=== PATIENT | female | born 1990 | race Caucasian/White ===

== ENCOUNTER 2016-09-18 20:41 | Emergency (ER) | payer BC ==
[~2016-09-18 20:41] MED LIST: AUGM875T PO; SPRI28TA PO
[2016-09-18 20:52] VITALS: BP 135/78; PULSE 77; RESP 20; TEMP 98.3; O2SAT 97
[2016-09-18] MEDS ORDERED: SPRI28TA PO (21:13)
[2016-09-18] MEDS ORDERED: PHEN95TA13 PO (21:13)
--- NOTE | 2016-09-18 21:17 | PD ---
HPI Chief Complaint: Complaint Time Seen by Provider: 21:04 Travel History International Travel<30 days: No Contact w/Intl Traveler<30days: No Traveled to known affect area: No History of Present Illness HPI This 25-year-old female presents with complaint of possible UTI. She says she is having frequency and lower abdominal pain. She gets frequent UTIs. She has not had fever or vomiting. She is not having flank pain. She didn't think she is but she is not sure. She is on control pills PFSH Past Medical History Hx Anticoagulant Therapy: No Cardiovascular Problems: No Chemotherapy: No Cerebrovascular Accident: No Diabetes: No Diminished Hearing: No Genitourinary: Yes (RECURRENT UTI) Musculoskeletal: Yes (RIGHT ANKLE FRACTURE) Reproductive: Yes (OVARIAN CYSTS; STARTED ON CONTROL PILLS FOR SAME ) Respiratory: No Immunizations Current: Yes Shingles: Yes Tetanus Vaccination: > 5 Years Influenza Vaccination: No ?: Not LMP: 2 YEARS , CONTROLL , : 0 Para: 0 Miscarriage: 0 : 0 Ovarian Cysts: Yes Past Surgical History Hysterectomy: No Oral Surgery: Yes (WISDOM TEETH REMOVED) Social History Alcohol Use: Yes (OCC) Tobacco Use: No Substance Use: No Allergies-Medications (Allergen,Severity, Reaction): Coded Allergies: Erythromycin (Verified Allergy, Mild, RASH, 09/18/16) Bactrim (Verified Allergy, Unknown, RASH, 09/18/16) Reported Meds & Prescriptions Reported Meds & Active Scripts Active Reported Uristat (Phenazopyridine HCl) 95 Mg Tablet 1 Tab PO TID Sprintec 28 (Norgestimate-Ethinyl Estradiol) 0.25-35 mg-Mcg Tab 1 Tab PO DAILY Review of Systems General / Constitutional: No: Fever, Chills Eyes: No: Diploplia, Blurred Vision HENT: No: Headaches, Vertigo Cardiovascular: No: Chest Pain or Discomfort, Palpitations Respiratory: No: Cough, Shortness of Breath Gastrointestinal: No: Nausea, Vomiting Genitourinary: Positive: Urgency, Frequency, Dysuria Musculoskeletal: No: Myalgias Skin: No Rash Physical Exam Narrative GENERAL: Well-developed female SKIN: Focused skin assessment warm/dry. HEAD: Atraumatic. Normocephalic. EYES: Pupils equal and round. No scleral icterus. No injection or drainage. ENT: No nasal bleeding or discharge. Mucous membranes pink and moist. NECK: Trachea midline. No JVD. CARDIOVASCULAR: Regular rate and rhythm. No murmur appreciated. RESPIRATORY: No accessory muscle use. Clear to auscultation. Breath sounds equal bilaterally. GASTROINTESTINAL: Abdomen soft, non-tender, nondistended. Hepatic and splenic margins not palpable. MUSCULOSKELETAL: No obvious deformities. No clubbing. No cyanosis. No edema. NEUROLOGICAL: Awake and alert. No obvious cranial nerve deficits. Motor grossly within normal limits. Normal speech. PSYCHIATRIC: Appropriate mood and affect; insight and judgment normal. Data Data Last Documented VS Vital Signs Date Time Temp Pulse Resp B/P Pulse Ox O2 Delivery O2 Flow Rate FiO2 09/18/16 20:52 98.3 77 20 135/78 97 Orders Urinalysis - C+S If Indicated (09/18/16 21:15) Ed Urine Pregnancytest Poc (09/18/16 21:15) Labs Laboratory Tests Test 09/18/16 21:15 Urine Color RED Urine Turbidity CLOUDY Urine pH 5.0 Urine Specific [place] 1.035 Urine Protein 100 mg/dL Urine Glucose (UA) 100 mg/dL Urine Ketones TRACE mg/dL Urine Occult Blood NEG Urine Nitrite POS Urine Bilirubin NEG Urine Leukocyte Esterase SMALL Urine RBC 4-9 /hpf Urine WBC 6-8 /hpf Urine Squamous Epithelial 0-5 /hpf Cells Urine Mucus FEW /lpf Microscopic Urinalysis Comment CULT NOT INDICATED MDM Medical Decision Making Medical Screen Exam Complete: Yes Emergency Medical Condition: Yes Medical Record Reviewed: Yes Differential Diagnosis Differential includes UTI, dysuria, Narrative Course Urinalysis is positive for nitrates and there is small leukocyte esterase. She' ll be treated for UTI Diagnosis Primary Impression: Urinary tract infection Scripts Ciprofloxacin (Cipro)500 Mg [id number] Mg PO BID #14 TAB Ref 0 Prov:Leonardo Escalera MD 09/18/16 Disposition: 01 DISCHARGE HOME Condition: Stable Leonardo Escalera MD Sep 18, 2016 21:17
[2016-09-18 21:35] LABS: BLOOD, URINE NEG (NEG); GLUCOSE,URINE 100 mg/dL (NEG); KETONE, URINE TRACE mg/dL (NEG)
[2016-09-18 21:37] LABS: NITRITE,URINE POS (NEG)
[2016-09-18 21:38] LABS: URINE COLOR RED (YELLW/STRAW)
[2016-09-18 21:40] LABS: MUCUS URINE FEW /lpf (OCC)
[2016-09-18 21:41] LABS: COMMENT (UR) CULT NOT INDICATED; CULTURE IF INDICATED CULT NOT INDICATED; SQUAMOUS EPITHELIAL CELL URINE 0-5 /hpf (0-5)
[2016-09-18] MEDS ORDERED: CIPR-9 PO (21:46)
== END 2016-09-18 21:55 | disposition home or self-care (01) ==
LOC: PHED 20:41
DX: N39.0 Urinary tract infection, site not specified (principal); Z79.3 Long term (current) use of hormonal contraceptives; Z87.440 Personal history of urinary (tract) infections
CPT/HCPCS: 81001; 84703; 99283